=== PATIENT | male | born 1980 | race Caucasian/White ===

== ENCOUNTER → 2016-12-23 | Outpatient (REF) ==
[~2016-12-23] MED LIST: NO HOME MEDICATIONS
== END ==
LOC: WSOH 10:10
DX: Z02.89 Encounter for other administrative examinations (principal)

== ENCOUNTER 2019-03-28 20:10 | Emergency (ER) | payer OTHER ==
[~2019-03-28] VITALS: Ht 175.3 cm; Wt 79.5 kg
[2019-03-28 20:20] VITALS: BP 130/76; TEMP 97.9
[2019-03-28] MEDS ORDERED: VALTREX1 GM PO (20:49)
[2019-03-28 20:52] VITALS: PULSE 83
== END 2019-03-28 20:52 | disposition home or self-care (01) ==
LOC: COL.ER 20:10
DX: B02.9 Zoster without complications (principal); Z88.0 Allergy status to penicillin; Z87.891 Personal history of nicotine dependence